=== PATIENT | male | born 1975 | race Caucasian/White ===

== ENCOUNTER → 2018-05-30 08:12 | Outpatient (CLI) | payer BC, SELFPAY ==
[2018-05-30 12:04] LABS: Absolute Lymphocyte Count 2.59 X10^3/ul (0.83-4.51); Absolute Neutrophil Count 3.9 X10^3/uL (2.0-7.7); Basophil# 0.02 X10^3/uL; Basophil% 0.3 % (0-1); Hematocrit 41.9 % (40-54); Hemoglobin 14.4 g/dl (13.0-16.5); Lymphocyte # 2.59 X10^3/ul (4.0); Lymphocyte % 36.6 % (19-41); Mean Corp Hgb Conc 34.4 g/gl (32-36); Mean Corpuscular Volume 87.3 fL (80-94); Mean Platelet Vol. 9.8 fl (6.2-12.0); Monocyte# 0.59 X10^3/uL; Monocyte% 8.3 % (0-10); Neutrophil # 3.86 X10^3/uL (2.7-7.7); Neutrophil % 54.5 % (47-70); Platelet Count 246 K/mm3 (150-450); RBC Distribution Width CV 12.7 % (11.6-14.6); RBC Distribution Width SD 40.6 fl (35.1-43.9); White Blood Count 7.1 K/mm3 (4.4-11.0)
[2018-05-30 12:06] LABS: POSITIVE COUNT NO; POSITIVE DIFFERENTIAL NO; POSITIVE MORPHOLOGY NO
[2018-05-30 12:15] LABS: ALB/GLOB Ratio 0.8 RATIO (0.9-2.4); AST(SGOT) 33 U/L (15-37); Alanine Aminotransfer ALT/SGPT 51 U/L (16-61); Alkaline Phosphatase 60 U/L (45-117); Anion Gap 6 (5-15); BUN 10 mg/dL (7-18); BUN/Creat Ratio 11.2 RATIO (10-20); Calcium,Total 8.3 mg/dL (8.5-10.1); Chloride 104 mmol/L (98-107); Cholesterol 179 mg/dL (200); Creatinine, Serum 0.89 mg/dL (0.70-1.30); EST Glomerular Filtration Rate 99 mL/min (>60); Est Glom Filt Rate - Afr Amer 120 mL/min (>60); Globulin 4.8 g/dL (2.2-4.2); Glucose 79 mg/dL (74-106); High Density Lipoprotein 23 mg/dL; Potassium 3.7 mmol/L (3.5-5.1); Protein, Total 8.8 g/dL (6.4-8.2); Sodium Level 137 mmol/L (136-145); Triglycerides 167 mg/dL; Very Low Density Lipoprotein 33 mg/dL (5-40)
[2018-05-30 12:24] LABS: Color, Urine Yellow (Yellow); Glucose, Dipstick Normal (Normal); Ketone-Dipstick Negative (Negative); Leukocyte Esterase-Dipstick 25 /ul (Negative); Nitrite-Dipstick Negative (Negative); Occult Blood-Urine Negative /ul (Negative); Protein-Dipstick Negative (Negative); Specific Gravity, Urine 1.025 (1.002-1.030); Urine Bilirubin Dipstick Negative (Negative); Urine Clarity Sl. Cloudy (Clear); Urine Urobilinogen Normal (Normal)
[2018-05-30 14:05] LABS: Chlamydia Trachomatis by PCR Negative (Negative); Neisserai gonorrhoeae by PCR Negative (Negative); Probe Check PASS; Sample Adequacy Control PASS; Specimen Processing Control PASS
== END ==
PROVIDERS: Visit Provider Family Medicine
DX: Z00.01 Encounter for general adult medical examination with abnormal findings (principal); R30.0 Dysuria
CPT/HCPCS: 36415; 80053; 80061; 81002; 85025; 87086; 87088; 87491; 87591

== ENCOUNTER → 2020-03-28 17:14 | Outpatient (CLI) | payer BC, SELFPAY | PROVIDERS: PCP Family Medicine; Referring Provider Family Medicine; Visit Provider Family Medicine | DX: Z20.828 Contact with and (suspected) exposure to other viral communicable diseases (principal) | CPT/HCPCS: 87635; G2023; U0003 ==

== ENCOUNTER → 2020-04-15 13:14 | Outpatient (CLI) | payer BC, SELFPAY ==
--- NOTE | 2020-04-15 13:24 | RAD_ITS ---
STUDY: X-RAY CHEST REASON FOR EXAM: Male, 45 years old. COUGH, SOB TECHNIQUE: PA and lateral views of the chest. COMPARISON: None. FINDINGS: Limited inspiratory effort. Increased markings at the lung bases more prominent on the right side suggestive of a bibasilar atelectasis. There is no demonstrated pleural abnormality. There is borderline cardiomegaly. Normal mediastinum and beatrice. Normal visualized pulmonary arteries. Normal visualized aortic arch and descending thoracic aorta. There are degenerative changes of the visualized thoracic spine. Normal visualized ribs, clavicles, and shoulders. There is no demonstrated abnormality of the visualized soft tissue structures of the upper abdomen. RAD/Chest PA and Lateral IMPRESSION: Borderline cardiomegaly. Increased markings at the lung bases slightly worse on the right side suggestive of bibasilar atelectasis. Electronically Signed: Arturo Monroe, at 15:25 EDT , Service support ,
== END ==
PROVIDERS: PCP Family Medicine; Referring Provider Family Medicine; Visit Provider Family Medicine
DX: R05 Cough (principal)
CPT/HCPCS: 71046

== ENCOUNTER → 2020-07-11 09:36 | Outpatient (CLI) | payer BC, SELFPAY ==
[2020-07-11 12:24] LABS: Absolute Lymphocyte Count 2.15 X10^3/uL (0.83-4.51); Absolute Neutrophil Count 4.1 X10^3/uL (2.0-7.7); Basophil# 0.03 X10^3/uL; Basophil% 0.4 % (0-1); Eosinophil# 0.02 X10^3/uL; Eosinophils% 0.3 % (0-5); Hemoglobin 15.5 g/dL (13.0-16.5); Lymphocyte # 2.15 X10^3/ul (4.0); Lymphocyte % 30.7 % (19-41); Mean Corp Hgb Conc 34.4 g/dL (32-36); Mean Corpuscular Hgb 30.1 pg (27.0-32.0); Mean Corpuscular Volume 87.4 fL (80-94); Mean Platelet Vol. 10.1 fl (6.2-12.0); Monocyte# 0.65 X10^3/uL; Monocyte% 9.3 % (0-10); NRBC Flagged by Analyzer 0 % (0-5); Neutrophil # 4.13 X10^3/uL (2.7-7.7); Neutrophil % 58.9 % (47-70); Platelet Count 267 K/mm3 (150-450); RBC Distribution Width CV 12.4 % (11.6-14.6); RBC Distribution Width SD 39.5 fl (35.1-43.9); Red Blood Count 5.15 M/mm3 (4.6-6.2)
[2020-07-11 13:13] LABS: Hemoglobin A1c 5.3 % (3.8-5.6)
[2020-07-11 13:20] LABS: ALB/GLOB Ratio 0.8 RATIO (0.9-2.4); AST(SGOT) 42 U/L (15-37); Alanine Aminotransfer ALT/SGPT 58 U/L (16-61); Albumin, Serum 3.9 g/dL (3.2-5.0); Alkaline Phosphatase 59 U/L (45-117); Anion Gap 6 (5-15); BUN 12 mg/dL (7-18); BUN/Creat Ratio 12.9 RATIO (10-20); Calcium,Total 8.4 mg/dL (8.5-10.1); Chloride 104 mmol/L (98-107); Cholesterol 177 mg/dL (200); Creatinine, Serum 0.93 mg/dL (0.70-1.30); EST Glomerular Filtration Rate 94 mL/min (>60); Est Glom Filt Rate - Afr Amer 113 mL/min (>60); Globulin 4.7 g/dL (2.2-4.2); Glucose 95 mg/dL (74-106); High Density Lipoprotein 24 mg/dL; PSA,Total - Annual Screen 0.84 ng/mL (0.00-4.00); Potassium 3.9 mmol/L (3.5-5.1); Protein, Total 8.6 g/dL (6.4-8.2); Sodium Level 138 mmol/L (136-145); Triglycerides 356 mg/dL; Very Low Density Lipoprotein 71 mg/dL (5-40)
== END ==
PROVIDERS: PCP Family Medicine; Visit Provider Family Medicine
DX: Z00.00 Encounter for general adult medical examination without abnormal findings (principal); Z12.5 Encounter for screening for malignant neoplasm of prostate; R35.8 Other polyuria
CPT/HCPCS: 36415; 80053; 80061; 83036; 84153; 85025; G0103

== ENCOUNTER 2021-07-10 11:30 | Outpatient (RCR) | payer BC, SELFPAY ==
--- NOTE | 2021-06-24 12:27 | HP.PTEVAL_ITS ---
Patient's Visit Information SHAI GARCÍA is a 46 year old M referred to Physical Therapy by ARIN Veliz with a diagnosis of R shoulder impingement. Date of Evaluation: 06/24/21 Physical Therapist: Osei Ceja DPT, OCS, CSCS - Visit Plan Frequency: 2x /Week Duration: 4-6 Weeks Plan: 2x/week for 4-6 for. 1. US nonthermal to R supra insert. 2. PROM r shoulder end flexion adn er and IR, with pec stretch and mobs as needed. 3. scap and postural and RC strength to I home program. 4. ice as needed. - Subjective R shoulder has been hurting. Fell on ice in September, no immediate pain but hurt months later. got injection in shoulder in March and it helped for a couple months. Pain is down arm laterally and into hand only on r side. 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 Lying on right side at night causes pain and that is his normal position. It does not keep him up at night unles she rolls to R. Got meds last week form doctor adn sent to therapy. No exercises. Home activities are normal, bowling is hobby and is effected - Objective Posture is extreme forward scap and head. Tightness in pecs apparent. Tenderness to palkpation in soft tissue ant shoulder at supraspinatus and infraspinatus insertion. Walks and transfers easily and I. + HK and + neer testing on R. - drop arm, - ext rotation lag test. AROM R shoulder 130 flexion and abduction limited by pain, similar PROM numbers. ER and IR full but slow and painful near end range. elbow flexiona dn extension WNL B. L shoulder is 155 flexionand abduction. reflexes 1/3 bi and tri. Sensation WNL to gross light touch in R UE. cervical aROM full and painfree today and - c/s compression test. Strength 4/5 in IR and ER with pain with both, empty can strong but paiful, flexiona dn abd R 4- with slight pain. - Balance/Special Test Scores Quick DASH Score: 43.1800 - Goals Goal 1:: Sleep without waking at night due to pain Goal Time Frame: 4-6 Weeks Goal 2:: Full 150 degree elevation R shoulder without pain Goal Time Frame: 4-6 Weeks Goal 3:: Patient feel back to 90% normal at work and home acitivites Goal Time Frame: 4-6 Weeks Goal 4:: Bowl without noticing R shoulder without modifications Goal Time Frame: 4-6 Weeks Goal 5:: <15 quickdash score Goal Time Frame: 4-6 Weeks - Rehabilitation Potential Physical Therapy Diagnosis: R shoulder tendonitis impingement in nature. Rehabilitation Potential: Fair - Anticipated Interventions Patient/Client Instruction: Educate patient on: Condition, Plan of Care For the Purpose of:: To decrease pain, To increase ROM, To improve muscle performance and motor function, To increase tolerance to activity/condition/position, To improve ability of physical actions for home/community/work/leisure Therapeutic Exercise to Include: Strength training, Postural training, Flexibilty training, Passive ROM, Active ROM, Scapular Strength/Stabilization For the Purpose of:: To decrease pain, To increase ROM, To improve muscle performance and motor function, To increase tolerance to activity/condition/position, To improve ability of physical actions for home/community/work/leisure Manual Therapy Techniques to Include: Mobilization, Passive ROM For the Purpose of:: To decrease pain, To increase ROM Cryotherapy (ice pack, ice massage): Yes For the Purpose of:: To decrease swelling/inflammation Thank you for the opportunity to evaluate your patient. For Medicare and Medicare HMO plans, please review the plan of care and approve it. It will need to be FAXED BACK to us at [phone] for Medicare purposes. For Medicare only, by signing this I certify the plan of care. Please let me know if there are questions or concerns regarding this plan of care. Physician Signature: Date:
--- NOTE | 2021-07-10 11:49 | HP.PTDCSUM ---
It has been my pleasure to treat SHAI GARCÍA referred by ARIN Veliz, with the diagnosis of R shoulder impingement for a total of 4 visit(s). Discharge Date: Please see the following information for a summary of their discharge status. Subjective: Patient reports that he has no pain in the shoulder at all- doing all the exercises. He was able to bowl 4 games in a row- and his games are a lot better now too. He is doing his exercises. Is back to all of his normal activities and bowling. He feels that he is I with his home exercise program. R shouldr Pain Intensity (Out of 10): 0 % Improvement: 100 Objective/Function: Posture: good throughout. Gait: good arm swing and trunk rotation. ROM: WNL in all planes- mild pain with IR. Strength: Shoulder: 5/5, Elbow: 5/5 Scap: fair plus. Special Test: HK: negative, Neer: negative Goal 1:: Sleep without waking at night due to pain Goal Progress: Progressing Goal 2:: Full 150 degree elevation R shoulder without pain Goal Progress: Goal Met Goal 3:: Patient feel back to 90% normal at work and home acitivites Goal Progress: Goal Met Goal 4:: Bowl without noticing R shoulder without modifications Goal Progress: Goal Met Goal 5:: <15 quickdash score Goal Progress: Goal Met Plan: Discharge to home exercise program. If there are questions or concerns regarding this patient's physical therapy, please feel free to call me at [phone]. Thank you for the referral of this patient. Sincerely, Vidya Grossman, JAXT Balance/Gait/Functional tests - Balance/Special Test Scores Quick DASH Score: 2.2725
== END 2021-07-10 12:24 | disposition home or self-care (01) ==
LOC: PT 11:30
PROVIDERS: PCP Family Medicine; Referring Provider Physician Assistant; Visit Provider Physician Assistant
DX: M75.41 Impingement syndrome of right shoulder (principal)
CPT/HCPCS: 97035; 97110; 97161; 97164

== ENCOUNTER 2021-09-28 10:24 | Emergency (ER) | payer OTHER, BC, SELFPAY ==
[2021-09-28 10:25] VITALS: BP 179/102; PULSE 102; RESP 16; TEMP 36.6; BMI 35.4
--- NOTE | 2021-09-28 10:47 | EDS_ITS ---
HPI History of Present Illness Chief Complaint: Upper Extremity Injury Informant: patient Occured/Mechanism Comment: Cut with scrap metal Onset/Context/Timing Onset: Today Current Severity: Mild Maximum Severity: Mild Narrative Narrative: Patient presents after work injury. He was trying to load scrap metal back into a hopper when he cut his right hand in the webspace between the thumb and index finger. He was wearing gloves at the time. He is unsure of his last tetanus update. He is right-hand dominant. PFSH PFSH Medical History no medical history no medical history Home Medications meloxicam 15 mg tablet 15 mg PO DAILY #30 tab 06/18/21 [Rx Last Taken Unknown] Allergy/AdvReac Type Severity Reaction Status Date / Time No Known Allergies Allergy Verified 09/28/21 10:32 Family History Father Hypertension Grandfather Cancer Other Myocardial infarction Social History Smoking Status: Current every day smoker tobacco type: cigarettes ROS ROS ED Constitutional Constitutional ED: Denies chills or fever(s) Eyes Eyes: Denies change in vision ENT ENT ED: Denies sore throat Cardiovascular Cardiovascular: Denies chest pain Respiratory/Chest Respiratory/Chest: Denies cough or dyspnea Gastrointestinal Gastrointestinal: Denies abdominal pain, diarrhea, nausea or vomiting Genitourinary Genitourinary ED: Denies dysuria Musculoskeletal Musculoskeletal: Reports other Details: Right hand pain ; Denies back pain Integumentary Reports other Details: Right hand laceration ; Denies rash Neurologic Neurologic: Denies headache(s), paresthesias or weakness Psychiatric Psychiatric: Denies anxiety or depression Allergic/Immunologic Allergic/Immunologic ED: Denies urticaria EXAM Physical Exam Const Vital Signs: 09/28/21 10:25 Temperature 97.9 F Temperature Source Temporal Pulse Rate 102 H Respiratory Rate 16 Blood Pressure 179/102 H Blood Pressure Mean 127 Positive well nourished and well developed General Appearance ED: well developed HEENT normocephalic and atraumatic Eyes PERRL and EOMs intact bilaterally Neck supple Chest Wall inspection of chest normal and palpation of chest normal Resp normal respiratory effort and clear to auscultation bilaterally Cardio regular rate and regular rhythm Extremity Extremity Narrative: 3 cm superficial laceration in the webspace between the thumb and index finger. Bleeding controlled. Full range of motion with good cap refill and sensation distally. Neuro oriented x3, no focal motor deficits and no sensory deficits noted Sensorium / Orientation: alert Skin Skin Narrative: Hand laceration as noted above. MDM MDM MDM Narrative Medical decision making narrative: Right hand x-ray obtained. Tetanus update provided. Treatment and Re-Evaluation Comments:: Wound was anesthetized with 2 cc of 1% lidocaine. Wound thoroughly irrigated. Wound is quite superficial and does not require suturing. Dermabond is placed across the wound with dressing. Patient to follow-up with [facility] care. Discharge Plan Triage Chief Complaint: Upper Extremity Injury ED Provider: Mili Mohan Dx/Rx/DC Orders Clinical Impression: Hand laceration Instructions: ED Laceration Small or ... Prescriptions: No Action meloxicam 15 mg tablet 15 mg PO DAILY Qty: 30 RF: 0 Stand Alone Forms: Work Status Form Primary Care Provider: Bridger Cancino Referrals: [facility] [GROUP OF PHYSICIANS] - 3-5 Days Bridger Cancino DO [Primary Care Provider] - Disposition Disposition: Home, Self Care
--- NOTE | 2021-09-28 10:47 | RAD_ITS ---
STUDY: X-RAY - RIGHT HAND REASON FOR EXAM: Male, 46 years old. injury TECHNIQUE: 3 view(s) of the hand. COMPARISON: None. FINDINGS: Normal radiocarpal articulation. Normal distal radioulnar joint. Normal visualized carpal bones. Normal carpal articulations Normal carpometacarpal articulation of the thumb. Normal second through fifth carpometacarpal joints. Normal metacarpi. Normal metacarpophalangeal joint of the thumb. Normal interphalangeal joint of the thumb. Normal proximal and distal phalanges of the thumb. Normal metacarpophalangeal joints of the second through fifth fingers. Normal proximal and distal interphalangeal joints of the second through fifth fingers. Normal phalanges of the second through fifth fingers. The soft tissue structures are unremarkable. RAD/Hand Min 3 Views IMPRESSION: Normal x-ray examination of the hand. Electronically Signed: Kartik Harden MD at 11:20 EST Tel , Service support ,
[2021-09-28] MEDS: Diphth,Pertuss(Acell),Tet Vac 0.5 ML Vial IM (11:06)
[2021-09-28] MEDS: Lidocaine 1% (20 ml mdv) 20 ML Vial INFILT (11:07)
== END 2021-09-28 12:50 | disposition home or self-care (01) ==
LOC: ED 12:20
PROVIDERS: Emergency Provider Emergency Medicine; PCP Family Medicine; Visit Provider Emergency Medicine
DX: S61.411A Laceration without foreign body of right hand, initial encounter (principal); F17.210 Nicotine dependence, cigarettes, uncomplicated; Z23 Encounter for immunization; X58.XXXA Exposure to other specified factors, initial encounter
CPT/HCPCS: 12002; 73130; 90471; 90715; 99283